=== PATIENT | female | born 2005 | race Caucasian/White ===

== ENCOUNTER 2025-08-12 12:53 | Emergency (ER) | payer BC ==
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
[2025-08-12 14:10] VITALS: TEMP 98.2
[2025-08-12 17:02] VITALS: BP 125/77; PULSE 70; O2SAT 98
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
[2025-08-12 18:07] VITALS: RESP 18
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
== END 2025-08-12 17:55 | disposition home or self-care (01) ==
LOC: ED 12:53
DX: S43.102A Unspecified dislocation of left acromioclavicular joint, initial encounter (principal); S00.81XA Abrasion of other part of head, initial encounter; S80.812A Abrasion, left lower leg, initial encounter; S80.811A Abrasion, right lower leg, initial encounter; V43.52XA Car driver injured in collision with other type car in traffic accident, initial encounter